=== PATIENT | female | born 2000 | race Caucasian/White ===

== ENCOUNTER 2022-05-26 03:59 | Inpatient (IN) ==
[2022-05-26 04:28] VITALS: BMI 21.7
[2022-05-26 04:36] LABS: BILIRUBIN,URINE NEGATIVE (NEGATIVE); BLOOD/HEMOGLOBIN,URINE NEGATIVE (NEGATIVE); GLUCOSE, URINE NEGATIVE (NEGATIVE); KETONES,URINE NEGATIVE (NEGATIVE); LEUKOCYTE ESTERASE ,URINE NEGATIVE (NEGATIVE); NITRITES,URINE NEGATIVE (NEGATIVE); PROTEIN,URINE NEGATIVE (NEGATIVE); UROBILINOGEN,URINE NORMAL (NORMAL)
[2022-05-26 04:39] LABS: APPEARANCE,URINE CLEAR (CLEAR); COLOR,URINE PALE YELLOW (YELLOW)
[2022-05-26 04:47] LABS: AMNISURE ROM TEST NO MEMBRANES RUPTURE (NO RUPTURE)
[2022-05-26 05:23] LABS: BASOPHILS # (AUTO) 0.1 X10^3/uL (0.0-0.1); BASOPHILS % (AUTO) 0.6 % (0.2-1.0); EOSINOPHILS # (AUTO) 0.1 x10^3/uL (0.0-0.2); EOSINOPHILS % (AUTO) 0.9 % (0.9-2.9); HEMATOCRIT 36.1 % (36.0-47.0); HEMOGLOBIN 12.9 g/dL (12.0-16.0); LYMPHOCYTES # (AUTO) 2.4 X10^3/uL (1.3-2.9); LYMPHOCYTES % (AUTO) 16.5 % (21.0-51.0); MEAN CORPUSCULAR HEMOGLOBIN 33.2 pg (27.0-34.0); MEAN CORPUSCULAR HGB CONC 35.7 g/dL (33.0-35.0); MEAN CORPUSCULAR VOLUME 92.9 fL (80.0-100.0); MEAN PLATELET VOLUME 8.7 fL (7.4-11.0); MONOCYTES # (AUTO) 1.1 x10^3/uL (0.3-0.8); MONOCYTES % (AUTO) 7.6 % (0.0-13.0); NEUTROPHILS # (AUTO) 10.9 x10^3/uL (2.2-4.8); NEUTROPHILS % (AUTO) 74.4 % (42.0-75.0); RED BLOOD COUNT 3.88 X10^6/uL (3.5-5.4); RED CELL DISTRIBUTION WIDTH 12.8 % (11.6-16.5); WHITE BLOOD COUNT 14.7 X10^3/uL (3.6-10.0)
[2022-05-26] MEDS ORDERED: REGLAN INJ 10 MG VIAL IVP PRN (05:26)
[2022-05-26] MEDS ORDERED: PITOCIN IVP ONE (05:26)
[2022-05-26] MEDS ORDERED: MORPHINE SULFATE INJ 2 MG INJ IVP PRN (05:26)
[2022-05-26] MEDS ORDERED: STADOL INJ IVP PRN (05:30)
[2022-05-26 05:32] LABS: ALANINE AMINOTRANSFERASE 17 Units/L (12-78); ALBUMIN 3.2 g/dL (3.4-5.0); ALKALINE PHOSPHATASE 156 Units/L (46-116); ASPARTATE AMINO TRANSFERASE 17 Units/L (15-37); BLOOD UREA NITROGEN 7 mg/dL (7-18); CALCIUM 8.5 mg/dL (8.5-10.1); CHLORIDE 100 mmol/L (98-107); COR CA(FOR HYPOALB) 9.1 mg/dL (8.5-10.1); CREATININE 0.39 mg/dL (0.55-1.02); SODIUM 134 mmol/L (136-145); TOTAL PROTEIN 6.6 g/dL (6.4-8.2); eGFR NON BLACK RACES > 60 (>60)
[2022-05-26] MEDS ORDERED: PITOCIN ONE (05:34)
[2022-05-26] MEDS ORDERED: BETADINE SOLN ONE (05:34)
[2022-05-26] MEDS ORDERED: D5 1/2 NS 1,000 ML 1,000 ML IV ONE (05:34)
[2022-05-26] MEDS ORDERED: D5 LR + PITOCIN 10 UNITS/L 10 UNITS/1,000 ML BAG IV ONE (05:35)
[2022-05-26] MEDS ORDERED: D5 1/2 NS 1,000 mL + PITOCIN 20 UNITS/L IV 20 UNITS/1,000 ML BAG IV ONE (05:35)
[2022-05-26] MEDS ORDERED: LR 1,000 ML IV 1,000 ML IV ONE (05:35)
--- NOTE | 2022-05-26 06:57 | DR.OB ---
OB Quick Note - Assessment/Plan Assessment/Plan: L&D 05/26/22 at 6:50am S-No complaint except CTX. O-Afebrile,VSS DJE=631 with good LTV, +accel, no decel. CTX=q 2-3 min., moderate to strong by palpation CVX=7-8cm/50%/0/VTX AROM with moderate meconium. A-IUP at 37 4/7 weeks in active labor P-Anticipate
[2022-05-26] MEDS ORDERED: D5 LR + PITOCIN 10 UNITS/L 10 UNITS/1,000 ML BAG IV PRN (07:26)
[2022-05-26] MEDS ORDERED: D5 1/2 NS 1,000 ML 1,000 ML IV SCH (08:00)
[2022-05-26] MEDS ORDERED: MOTRIN TAB 800 MG PO PRN (08:29)
[2022-05-26] MEDS: D5 1/2 NS 1,000 ML 1,000 ML with PITOCIN 20 UNITS IV SCH ×4 (09:44→17:13)
[2022-05-26] MEDS ORDERED: DERMOPLAST PAIN RELIEF SPRAY TOP PRN (09:44)
[2022-05-26] MEDS ORDERED: AMBIEN PO PRN (09:44)
[2022-05-26] MEDS ORDERED: ADACEL or BOOSTRIX TDaP VACCINE IM ONE ×2 (09:44→17:16)
[2022-05-26] MEDS ORDERED: MILK OF MAGNESIA PO PRN (09:44)
--- NOTE | 2022-05-26 11:26 | DR.OB ---
OB Quick Note - Assessment/Plan Assessment/Plan: Delivery Note TISSUE TECHNOLOGIST 05/26/22 at 8:18am Patient complete and pushing. Head delivered over intact perineum. No nuchal cord. Nose and mouth bulb suctioned. Body delivered over intact perineum. Cord clamped x 2 and cut. handed to attendant. Cord sent for gases. Placenta delivered spontaneously / intact / 3 vessel cord. No CVX / vaginal / perineal tears. Viable male delivered by , VTX/OA, wt=6'0" and 9/9, stable to NBN. Mother stable to NBN. EGD=[id number].
[2022-05-26] MEDS: PRENATAL PLUS PO SCH (17:24)
[2022-05-27] MEDS: D5 1/2 NS 1,000 ML 1,000 ML with PITOCIN 20 UNITS IV SCH ×2 (01:03)
[2022-05-27 05:06] LABS: HEMATOCRIT 35.2 % (36.0-47.0); HEMOGLOBIN 12.7 g/dL (12.0-16.0)
[2022-05-27 09:06] VITALS: BP 114/76
[2022-05-27] MEDS: PRENATAL PLUS PO SCH (10:01)
== END 2022-05-27 13:00 | disposition home or self-care (01) | DRG 807 ==
LOC: ER 04:03 → LD 04:56 → MED/SURG 10:55
PROVIDERS: ADMIT Obstetrics & Gynecology Obstetrics; ATTEND Specialist
DX: Z37.0 Single live birth; Z3A.37 37 weeks gestation of pregnancy; O80 Encounter for full-term uncomplicated delivery